=== PATIENT | female | born 1960 | race Caucasian/White ===

== ENCOUNTER 2025-04-03 09:38 | Emergency (ER) | payer BC, SELFPAY ==
[2025-04-03 09:46] VITALS: BP 143/89
[2025-04-03 10:49] VITALS: BP 126/80
--- NOTE | 2025-04-03 10:56 | ED.GENMED ---
History of Present Illness
General
Chief Complaint: Dizziness
Source: patient
Exam Limitations: none
Time Seen by Provider: 04/03/25 10:47
History of Present Illness
History of Present Illness:
64yoF with a history of rheumatoid arthritis presenting with her for evaluation of a headache. Patient reports a gradual onset of a headache around 7:30am this morning. Headache is localized to the left temporal area and is described as
throbbing. The headache is causing her to feel nauseous and lightheaded. She denies any history of similar headaches and she currently rates her pain as a 9/10 in severity. She went to the school nurse today and her blood pressure was elevated at
147/91 and EMS was activated. She denies any visual changes or head trauma. Her only medications are Plaquenil and prednisone 5mg.
Phy Exam
Physical Exam
Physical Exam:
Sitting in a dark room, appears uncomfortable, non-toxic
General Physical Exam
General Skin: warm and dry
General Habitus: normal and elderly
General Mental: alert
ENT Exam
ENT Exam: normocephalic
Eye Exam
Eye Exam: PERRL, EOMI and conjunctiva normal
Cardiovascular Exam
Cardiovascular Exam: regular rate/rhythm
Pulmonary Exam
Pulmonary Exam: lungs clear, no respiratory distress, no rales, no crackles, no rhonchi and no wheezing
Neurological Exam
Neurological Exam: alert
[place] Coma Scale
Eye Opening: Spontaneous
Verbal Response: Oriented
Motor Response: Obeys Commands
GCS Total Score: 15
Skin Exam
Skin Exam: normal color and warm/dry
Psychiatric Exam
Psychiatric Exam: normal mood/affect
Course
Orders/Labs/Results
Orders:
Orders
04/03/25 09:48
Electrocardiogram (*1) Urgent
Reason for Study: Vertigo / Dizzy
EKG- Treatment ONCE
04/03/25 11:13
0.9% Sodium Chloride 1000 ml [Nss] 1,000 ml IV BOLUS
Diphenhydramine [Benadryl] 25 mg IV NOW STA
Magnesium Sulfate 2 Gram/50 ml [Magnesium Sulfate] 2 gram in 50 ml IV NOW
Metoclopramide [Reglan] 10 mg IV NOW STA
04/03/25 11:14
CT Head W/o Iv Contrast Urgent
Comment:
Reason For Exam: acute headache
04/03/25 11:29
CRP [C-Reactive Protein] Urgent
Complete Blood Count/With Diff Urgent
Comprehensive Metabolic Panel Urgent
ESR [Erythrocyte Sed Rate] Urgent
Troponin I Urgent
04/03/25 12:49
Acetaminophen 1000MG/100Ml [Ofirmev] 1,000 mg in 100 ml IV ONCE
Acetaminophen IV Indication:: ED Narcotic Naive Pt-ONCE
Ketorolac [Toradol] 15 mg IV NOW STA
Abnormal Lab Results
04/03/25
11:29
Abs Immat Gran (auto) 0.1 H 10^3/uL
(0-0.05)
Absolute Neuts (auto) 7.4 H 10^3/uL
(1.4-6.5)
Immature Gran % 1.4 H %
(0-0.5)
Neutrophils % 78.9 H %
(42.2-75.2)
Lymphocytes % 12.4 L %
(20.5-51.1)
BUN 22 H mg/dl
(7-17)
Glucose 117 H mg/dl
(70-99)
04/03/25 11:29
04/03/25 11:29
Vital Signs
Initial and Last Documented VS:
Initial Vital Signs
Temp Pulse Resp BP Pulse Ox
98 F 82 16 143/89 100
04/03/25 09:46 04/03/25 09:46 04/03/25 09:46 04/03/25 09:46 04/03/25 09:46
Last Documented Vital Signs
Temp Pulse Resp BP Pulse Ox
98 F 78 19 132/76 99
04/03/25 09:46 04/03/25 13:00 04/03/25 13:00 04/03/25 13:00 04/03/25 12:45
MDM/Problems Addressed
Differential Diagnosis Includes:
64yoF here with a L temporal headache that began this morning. Gradual in onset. 9/10 in severity. BP was high at nurse's office today. BP 143/89 on arrival. Patient is sitting in a dark room and appears uncomfortable. No meningismus or focal
neuro deficits noted. Differential diagnosis includes but is not limited to: Migraine, tension headache, symptomatic hypertension, subarachnoid hemorrhage, temporal arteritis
Initial ED plan: Check cardiac labs, ESR/CRP, EKG, and CT head. IV migraine cocktail and reassess.
*EKG
Interpreted by ED Provider?: Yes
EKG Intrepretation Date: 04/03/25
Heart Rate: 79
Rate: normal
Rhythm: sinus
[place]: normal axis
Interval: normal interval
QRS Pattern: normal QRS
Ischemia: no ischemia
*Critical Care Note
Total Time (30-74mins, 75-104mins- exclusive of procedures): Not Applicable
Update Note
Update Note:
Labs overall unremarkable. EKG shows normal sinus rhythm without ischemic changes and troponin within normal limits. Both ESR and CRP are normal making temporal arteritis very unlikely. CT head is negative for acute findings which almost
certainly rules out a subarachnoid hemorrhage as imaging was obtained within 6 hours of symptom onset. Patient feeling significantly improved on reassessment and headache is down to a 1/10 in severity. BP also improved. No indication for
hospitalization. Advised close f/u with PCP and ED return precautions discussed. Patient discharged in stable condition.
Patient was discharged during [facility] downtime and was given hand written discharge instructions.
ED Attending Note
-
Portions of this chart may have been created with voice recognition software.� Occasional wrong word or��sound alike� substitutions may have occurred due to the inherent limitations of voice recognition software.
Discharge Plan
Departure
Patient Disposition: Home (Routine Discharge)
Date of Disposition: 04/03/25
Time of Disposition: 15:55
Patient with high blood pressure during this ER visit?: No
Discharge Problem:
Acute nonintractable headache
Referrals:
Krystal Gomes MD [Family Provider]
Interventions
Interventions:
*Risk Screen - Suicide Last Done: 04/03/25 09:48
*General Assessment Last Done: 04/03/25 11:42
*Neglect/Abuse Screening Last Done: 04/03/25 09:48
*ED- Fall Risk Assessment Last Done: 04/03/25 11:42
*ED COVID-19 Vaccine History Last Done: 04/03/25 11:42
*Nursing Disposition Last Done: 04/03/25 16:07
ED- Neurological Assessment Last Done: 04/03/25 11:42
ED Swallowing Screen Last Done: 04/03/25 11:42
Discharge Date and Time
Discharge Date/Time: 04/03/25 15:08
Print Language: TUNISIAN
[2025-04-03 11:01] VITALS: BP 148/108
[2025-04-03] MEDS: BENADRYL 25 MG IV (11:36)
[2025-04-03] MEDS: NSS 1000 IV (11:36)
[2025-04-03] MEDS: REGLAN 10 MG IV (11:37)
[2025-04-03 11:54] LABS: % Basophils 0.5 % (0-2); % Eosinophils 0.5 % (0-6); % Immature Granulocytes 1.4 % (0-0.5); % Lymphocytes 12.4 % (20.5-51.1); % Monocytes 6.3 % (1.7-9.3); % Neutrophils 78.9 % (42.2-75.2); Absolute Basophils 0.1 10^3/uL (0-0.2); Absolute Eosinophils 0.1 10^3/uL (0-0.7); Absolute Immature Granulocytes 0.1 10^3/uL (0-0.05); Absolute Lymphocytes 1.2 10^3/uL (1.2-3.4); Absolute Monocytes 0.6 10^3/uL (0.1-0.6); Absolute Neutrophils 7.4 10^3/uL (1.4-6.5); Hematocrit 41.4 % (37.0-47.0); Hemoglobin 14.3 g/dL (12.0-16.0); Mean Corp Hgb Conc. 34.5 g/dL (33.0-37.0); Mean Corpuscular Hgb 29.2 pg (27.0-31.0); Mean Corpuscular Volume 84.7 fL (81.0-99.0); Mean Platelet Volume 9.2 fL (7.4-10.4); Nucleated Red Blood Cells % 0 %; Platelet Count 142 10^3/uL (130-400); Red Blood Cell Count 4.89 10^6/uL (4.20-5.40); Red Cell Dist. Width 13.3 % (11.5-14.5); White Blood Cell Count 9.3 10^3/uL (4.8-10.8)
[2025-04-03 12:00] VITALS: BP 123/71
[2025-04-03] MEDS: MAGNESIUM SULFATE 50 IV (12:00)
[2025-04-03 12:04] LABS: Erythrocyte Sed Rate 16 mm/hour (0-20)
[2025-04-03 12:12] LABS: C-Reactive Protein < 5.00 mg/L (0.0-10.00)
[2025-04-03 12:13] LABS: Troponin I < 0.012 ng/ml
[2025-04-03 12:15] LABS: ALT (SGPT) 28 U/L (0-35); AST (SGOT) 19 U/L (14-36); Albumin 4.7 g/dl (3.5-5.0); Alkaline Phosphatase 59 U/L (38-126); Blood Urea Nitrogen 22 mg/dl (7-17); Carbon Dioxide 27 mmol/L (22-30); Chloride 106 mmol/L (98-107); Glucose 117 mg/dl (70-99); Potassium 4.5 mmol/L (3.5-5.1); Sodium 139 mmol/L (135-145); Total Bilirubin 0.4 mg/dl (0.2-1.3); Total Protein 7.6 g/dl (6.3-8.2); eGFR > 60.00
[2025-04-03 13:00] VITALS: BP 132/76
[2025-04-03] MEDS: OFIRMEV 100 IV (13:05)
[2025-04-03] MEDS: TORADOL 15 MG IV (13:05)
--- NOTE | 2025-04-03 16:01 | DOWNTIME ---
There was a [employer] Downtime on 04/03/2025 from 1230 to 04/03/2025 at 1550. Downtime documentation of patient's care, including medication administrations, has been reconciled in the electronic record per guidelines. Refer to the
patient's paper chart under the miscellaneous tab to see printed paper medication records and downtime forms.
== END 2025-04-03 15:08 | disposition home or self-care (01) ==
LOC: EMR 09:38
PROVIDERS: Physician Assistant; EMERGENCY PHYSICIAN Emergency Medicine; FAMILY PHYSICIAN Internal Medicine
DX: R51.9 Headache, unspecified (principal); R42 Dizziness and giddiness; R11.0 Nausea; M06.9 Rheumatoid arthritis, unspecified
CPT/HCPCS: 96365; 96375; 99284; 70450; 80053; 84484; 85025; 85652; 86140; 93005